=== PATIENT | male | born 1965 | race Caucasian/White ===

== ENCOUNTER → 2023-10-27 07:14 | Outpatient (REF) | payer BC, SELFPAY | LOC: RAD 07:14 | PROVIDERS: ATTENDING PHYSICIAN Neurological Surgery; FAMILY PHYSICIAN Family Medicine; REFERRING PHYSICIAN Physical Medicine & Rehabilitation | DX: M54.12 Radiculopathy, cervical region (principal); M96.0 Pseudarthrosis after fusion or arthrodesis | CPT/HCPCS: 72125 ==

== ENCOUNTER → 2024-10-29 08:10 | Outpatient (REF) | payer BC, SELFPAY | LOC: PAVMRI 08:10 | PROVIDERS: ATTENDING PHYSICIAN Psychiatry & Neurology Neurology; FAMILY PHYSICIAN Family Medicine | DX: M54.12 Radiculopathy, cervical region (principal); G54.0 Brachial plexus disorders | CPT/HCPCS: 71550; 72156; A9575 ==

== ENCOUNTER 2024-12-11 06:20 | Day surgery (SDC) | payer BC, SELFPAY ==
[2024-12-02 13:38] VITALS: BMI 27.2
[2024-12-02 14:14] LABS: Hematocrit 47.6 % (39.0-52.0); Hemoglobin 16.8 g/dL (13.0-18.0); Mean Corp Hgb Conc. 35.3 g/dL (33.0-37.0); Mean Platelet Volume 10.6 fL (7.4-10.4); Platelet Count 160 10^3/uL (130-400)
[2024-12-02 14:40] LABS: ALT (SGPT) 121 U/L (0-50); AST (SGOT) 76 U/L (17-59); Albumin 5.3 g/dl (3.5-5.0); Alkaline Phosphatase 84 U/L (38-126); Blood Urea Nitrogen 14 mg/dl (9-20); Carbon Dioxide 23 mmol/L (22-30); Chloride 104 mmol/L (98-107); Estimated Creatinine Clearance 92 ml/min; Glucose 137 mg/dl (70-99); Potassium 4.4 mmol/L (3.5-5.1); Sodium 142 mmol/L (135-145); Total Protein 7.9 g/dl (6.3-8.2); eGFR > 60.00
[2024-12-11] VITALS (16 sets, daily range): BP systolic 128–163; BP diastolic 75–90; BMI 27.2
[2024-12-11] MEDS: LYRICA 150 MG PO (08:40)
[2024-12-11] MEDS: METHOCARBAMOL 1500 MG PO (08:40)
[2024-12-11] MEDS: CELEBREX 200 MG PO (08:40)
[2024-12-11] MEDS: NORMOSOL-R/PLASMALYTE-A 1000 IV (08:48)
[2024-12-11] MEDS: TYLENOL 1000 MG PO (08:53)
[2024-12-11] MEDS: DILAUDID 0.5 MG IV ×2 (11:20→11:36)
[2024-12-11] MEDS: DILAUDID 0.25 MG IV (12:24)
[2024-12-11] MEDS: ULTRAM 50 MG PO (13:14)
--- NOTE | 2024-12-11 13:16 | SUR.PHASEI ---
medicated for neck and headache pain. pain 10/10 - feels better, position changes are also helpful
== END 2024-12-11 13:51 | disposition home or self-care (01) ==
LOC: SDS 06:20
PROVIDERS: ATTENDING PHYSICIAN Orthopaedic Surgery Orthopaedic Surgery of the Spine; FAMILY PHYSICIAN Family Medicine
DX: M48.02 Spinal stenosis, cervical region (principal)
CPT/HCPCS: 22551; 22845; 22853; C1713; C1776; 36415; 72020; 80053; 85027; 86850; 86900; 86901; 87070; 93005

== ENCOUNTER → 2025-05-05 09:45 | Outpatient (REF) | payer BC, SELFPAY | LOC: RST 09:45 | PROVIDERS: ATTENDING PHYSICIAN Physician Assistant; FAMILY PHYSICIAN Family Medicine | DX: R13.19 Other dysphagia (principal) | CPT/HCPCS: 74230; 92611 ==

== ENCOUNTER 2025-05-11 19:57 | Emergency (ER) | payer BC, SELFPAY ==
[2025-05-11 20:05] VITALS: BP 175/98
[2025-05-11 22:19] VITALS: BP 146/88
[2025-05-11 22:27] VITALS: BMI 29.0
[2025-05-11 23:00] VITALS: BP 122/74
[2025-05-12] VITALS: BP 137/87
--- NOTE | 2025-05-12 | ED.GENMED ---
History of Present Illness
<Shayla Gomez PA-C - Last Filed: 05/12/25 06:15>
General
Chief Complaint: Ear Problem
Source: patient
Exam Limitations: none
Time Seen by Provider: 05/11/25 23:29
Nursing documentation reviewed up to this point in time: agreed with
History of Present Illness
History of Present Illness:
60-year-old male with a past medical history of GERD, hypertension, HONG, who presents to the ER today with concerns of with a sudden onset of hearing loss in the right ear accompanied by eye pain. The symptoms first manifested today. The patient
reports that the eye pain started with a sharp sensation earlier today, followed by hearing loss in the right ear which occurred later the same day. The eye pain has since resolved, but he does notice a scratchy sensation in the right eye. He denies
foreign body in the eye or chemical exposure. Patient then started to experience ringing in the right ear followed by muffled hearing and hearing loss. He denies ear pain. The patient notes no ear pain, drainage, or pain behind the ear. He denies
headache or neck pain. By approximately 3:30 PM, the patient could not hear anything from the right ear. He denies nausea, vomiting, vertigo, dizziness, lightheadedness, double vision, facial droop, facial paresthesias. He denies any abdominal
pain, chest pain and shortness of breath. Went to urgent care and was told he has swelling in his right ear and was advised to go to the ER. Patient denies any history of shingles. He denies any visual loss. He denies any ambulatory dysfunction.
He otherwise feels well.
Past History
<Shayla Gomez PA-C - Last Filed: 05/12/25 06:15>
Past History
ED Past Medical History: Other (Hong)
ED Past Surgical History: Other (Liver biopsy September 2018)
Social History
Tobacco: Non-smoker
Alcohol: None
Drug: None
Personal:
Living: with family
Employment: Employed ([employer])
Family History
Family History: Other (Noncontributory)
Review of Systems
<Shayla Gomez PA-C - Last Filed: 05/12/25 06:15>
Review of Systems
All Other Systems: ROS reviewed and negative except as documented in HPI and ROS
Phy Exam
<Shayla Gomez PA-C - Last Filed: 05/12/25 06:15>
Physical Exam
Physical Exam:
General: Patient is well appearing and in no acute distress; non-toxic
Skin: Warm and dry, no rashes or lesions
Head: Normocephalic, atraumatic
Eyes: Sclera non-icteric. EOMs intact.
Right eye: No scleral injection noted. With fluorescein staining, Small 2 mm horizontal corneal abrasion. No foreign body.
Ears:
R: No erythema or swelling of the external canal, no TM bulging or erythema. Auricle unremarkable.
L: No erythema or swelling of the external canal, no TM bulging or erythema. Auricle unremarkable.
Throat: No pharyngeal erythema, uvula midline
Cardiac: Regular rate and rhythm, no murmurs
Peripheral Vascular: No lower extremity swelling or edema
Pulm: Normal respiratory effort, no wheezes, rales, or rhonchi
Neuro: CN II-XII intact, no focal neurologic deficits.
Psychiatric: Appropriate mood and affect.
Course
<Shayla Gomez PA-C - Last Filed: 05/12/25 06:15>
Orders/Labs/Results
Orders:
Orders
05/11/25 20:09
CT Head W/o Iv Contrast Urgent
Reason For Exam: eye pain, hearing loss. head fullness.
05/11/25 23:47
Purified Water Eye Wash [Dacriose Eye Wash Solution] 120 ml .ROUTE .STK-MED ONE
Vital Signs
Initial and Last Documented VS:
Initial Vital Signs
Temp Pulse Resp BP Pulse Ox
98.2 F 68 16 175/98 99
05/11/25 20:05 05/11/25 20:05 05/11/25 20:05 05/11/25 20:05 05/11/25 20:05
Last Documented Vital Signs
Temp Pulse Resp BP Pulse Ox
98.2 F 64 18 137/87 98
05/11/25 20:05 05/12/25 00:00 05/12/25 00:00 05/12/25 00:00 05/12/25 00:00
<Sasha Domingo DO - Last Filed: 05/12/25 07:01>
Orders/Labs/Results
Orders:
Orders
05/11/25 20:09
CT Head W/o Iv Contrast Urgent
Reason For Exam: eye pain, hearing loss. head fullness.
05/11/25 23:47
Purified Water Eye Wash [Dacriose Eye Wash Solution] 120 ml .ROUTE .STK-MED ONE
Vital Signs
Initial and Last Documented VS:
Initial Vital Signs
Temp Pulse Resp BP Pulse Ox
98.2 F 68 16 175/98 99
05/11/25 20:05 05/11/25 20:05 05/11/25 20:05 05/11/25 20:05 05/11/25 20:05
Last Documented Vital Signs
Temp Pulse Resp BP Pulse Ox
98.2 F 64 18 137/87 98
05/11/25 20:05 05/12/25 00:00 05/12/25 00:00 05/12/25 00:00 05/12/25 00:00
<Shayla Gomez PA-C - Last Filed: 05/12/25 06:15>
MDM/Problems Addressed
Differential Diagnosis Includes:
ddx include sinusitis, corneal abrasion, otitis media, otitis externa, meniere's disease, medication toxicity, otosclerosis, eustachian tube dysfunction
MDM/Problems Addressed:
60-year-old male with a past medical history of GERD, hypertension, HONG, who presents to the ER today with concerns of with a sudden onset of hearing loss in the right ear accompanied by eye pain. The symptoms first manifested today. The pain has
mostly resolved but he notes a scratchy sensation in right eye. He has a small abrasion on exam but no dendritic lesions. He has no facial rash or droop. No accompanied dizziness which is reassuring. Urgent care provider was concerned about ear
swelling however on my exam, I do not see any abnormalities in right ear. Reviewed case with ED attending who also examined the ear. Discussed close follow up with ENT, symptoms could represent very early developing ear infection vs developing
shingles. Discussed symptoms to look out for and strict return precautions. Patient did recieve CT scan of the head prior to my evaluation which was normal. Patient stable for discharge.
Chronic conditions affecting care:
htn, gerd, HONG
<Shayla Gomez PA-C - Last Filed: 05/12/25 06:15>
*Pulse Oximetry
SaO2: 98
Oxygen Mode of Delivery: Room air
Patient hypoxic: no
*Critical Care Note
Total Time (30-74mins, 75-104mins- exclusive of procedures): Not Applicable
Data Reviewed
Review of Other/Old Records Reveals: Records (Reviewed from 12/11/2024, patient seen for surgery for spinal stenosis)
Source: patient and records
ED Attending Note
<Shayla Gomez PA-C - Last Filed: 05/12/25 06:15>
-
Portions of this chart may have been created with voice recognition software.� Occasional wrong word or��sound alike� substitutions may have occurred due to the inherent limitations of voice recognition software.
<Sasha Domingo DO - Last Filed: 05/12/25 07:01>
ED Attending Note
Patient seen and examined by attending physician: Yes
I performed a history and physical exam of patient and discussed management with resident, I reviewed resident's note and agree with documented findings and plan of care.: Yes
ED Attending Note:
60-year-old gentleman with history of hypertension, GERD, cervical disc disease status post anterior cervical Lami November of this year. He has noted some globus sensation since laminectomy and was evaluated by ENT 2 weeks ago, unremarkable exam.
Today he noticed mild irritation, discomfort to his right eye which has since resolved. No injury, no tearing, no vision loss. He then noticed sudden loss of hearing from his right ear since this afternoon. No nasal congestion nor crackling, no
pain. No headache. No dizziness nor lightheadedness.
He presents from urgent care for further evaluation.
Overall well in appearance. Bilateral ear canals are clear, TMs with mild sclerosis bilaterally but no effusion.
CT of the head is unremarkable.
At this point unclear as to cause for hearing loss. Reassuring that there is no other associated symptoms, no symptoms of vertigo, no headache, no weakness nor numbness.
With mild right irritation which has since resolved, must consider prodromal symptoms of herpes zoster. Would not initiate antiviral at this point but discussed with patient to be mindful if right facial/right forehead painful, grouped
papulovesicular rash appears, recommend prompt call to his PCP versus return to the ED.
Otherwise recommend prompt follow-up with ENT for further evaluation of right ear hearing loss.
Discharge Plan
Departure
Patient Disposition: Home (Routine Discharge)
Date of Disposition: 05/12/25
Time of Disposition: 00:37
Patient with high blood pressure during this ER visit?: Yes
Condition: Good
Discharge Problem:
Hearing difficulty of right ear, Corneal abrasion, right
Instructions: Corneal Abrasion (DC), Hearing loss in adults, BLOOD PRESSURE
Prescriptions:
New
ciprofloxacin HCl 0.3 % drops
2 drp ophthalmic (eye) QID 5 Days Qty: 5 0RF
No Action
amlodipine 5 mg Tablet
5 mg PO DAILY
pantoprazole 40 mg Tablet,Delayed Release (Dr/Ec)
40 mg PO DAILY
ibuprofen 200 mg Tablet
400 mg PO Q6H PRN (Reason: pain)
bergamot extract 500 mg Capsule
500 mg PO DAILY
Liver Rescue
2 cap PO DAILY
Referrals:
Forrest Hoff DO [Family Provider, Family Practice]
Activity Restrictions/Additional Instructions:
Your CT of the head was normal.
Please call your ENT doctor to schedule follow up appointment.
Eye drops have been sent to your pharmacy. Please instill 2 drops 4 times daily for 5 days.
Please watch out for numbness and tingling on the face or ear auricle or the development of a rash.
PLEASE RETURN TO THE ER SHOULD YOU DEVELOP EAR PAIN, DRAINAGE FROM THE EAR, DIZZINESS, CHEST PAIN, SHORTNESS OF BREATH, FEVER, OR ANY OTHER SIGNS OR SYMPTOMS WORRISOME TO YOU.
Interventions
Interventions:
*Risk Screen - Suicide Last Done: 05/11/25 20:05
*General Assessment Last Done: 05/11/25 22:23
*Neglect/Abuse Screening Last Done: 05/11/25 20:05
*ED- Fall Risk Assessment Last Done: 05/11/25 22:23
*ED COVID-19 Vaccine History Last Done: 05/11/25 22:23
*Nursing Disposition Last Done: 05/12/25 00:53
Discharge Date and Time
Discharge Date/Time: 05/12/25 00:54
Print Language: MONGOLIAN
== END 2025-05-12 00:54 | disposition home or self-care (01) ==
LOC: EMR 19:57
PROVIDERS: EMERGENCY PHYSICIAN Emergency Medicine; FAMILY PHYSICIAN Family Medicine
DX: H91.91 Unspecified hearing loss, right ear (principal); S05.01XA Injury of conjunctiva and corneal abrasion without foreign body, right eye, initial encounter; X58.XXXA Exposure to other specified factors, initial encounter; I10 Essential (primary) hypertension; K21.9 Gastro-esophageal reflux disease without esophagitis; K75.81 Nonalcoholic steatohepatitis (NASH); M50.30 Other cervical disc degeneration, unspecified cervical region; M48.02 Spinal stenosis, cervical region
CPT/HCPCS: 99284; 70450

== ENCOUNTER 2025-07-28 16:54 | Emergency (ER) | payer BC, SELFPAY ==
[2025-07-28] VITALS (7 sets, daily range): BP systolic 109–151; BP diastolic 73–90; BMI 27.3
[2025-07-28 17:20] LABS: Hematocrit 44.8 % (39.0-52.0); Hemoglobin 15.5 g/dL (13.0-18.0); Mean Corp Hgb Conc. 34.6 g/dL (33.0-37.0); Mean Corpuscular Volume 85.2 fL (80.0-94.0); Nucleated Red Blood Cells % 0 % (-); Platelet Count 184 10^3/uL (130-400); Red Cell Dist. Width 12.8 % (11.5-14.5)
[2025-07-28 17:43] LABS: ALT (SGPT) 78 U/L (0-50); AST (SGOT) 52 U/L (17-59); Albumin 5.0 g/dl (3.5-5.0); Alkaline Phosphatase 85 U/L (38-126); Blood Urea Nitrogen 15 mg/dl (9-20); Calcium 9.4 mg/dl (8.4-10.2); Carbon Dioxide 28 mmol/L (22-30); Chloride 103 mmol/L (98-107); Glucose 101 mg/dl (70-99); Potassium 4.1 mmol/L (3.5-5.1); Sodium 137 mmol/L (135-145); Total Protein 7.5 g/dl (6.3-8.2); eGFR > 60.00
--- NOTE | 2025-07-28 19:40 | ED.GENMED ---
History of Present Illness
General
Chief Complaint: Chest Pain
Source: patient and spouse
Exam Limitations: none
Time Seen by Provider: 07/28/25 19:29
Nursing documentation reviewed up to this point in time: agreed with
History of Present Illness
History of Present Illness:
60-year-old male with a past medical history of hypertension, GERD, VALDIVIA who presents to the emergency department accompanied by his for evaluation of chest pain. Patient reports sudden onset of symptoms at about 4 PM today�he was at the store
with his and says that he reached into his right pocket to pull out his cell phone and had sudden onset of chest pain radiating towards back/right shoulder. He says pain was extremely intense at onset to the point that he went down to his
knee. He was nauseated and felt short of breath. He says pain has been constant although intensity has improved since onset. He does seem to be worse with breathing as well as with certain movements of the arm. Came to the ER for assessment. He
denies any symptoms prior to onset today such as cough, fever, chills, leg pain or swelling. He denies having had similar symptoms in the past. He denies any personal history of heart disease. He says he has not been exercising recently as he has
been having orthopedic issues with his neck and had surgery for his neck earlier this year in November; prior to this he said he exercised regularly on the elliptical for an hour at a time without any limitations.
Past History
Past History
ED Past Medical History: Other (Valdivia)
ED Past Surgical History: Other (Liver biopsy September 2018)
Social History
Tobacco: Non-smoker
Alcohol: None
Drug: None
Personal:
Living: with family
Employment: Employed ([employer])
Family History
Family History: Other (Noncontributory)
Review of Systems
Review of Systems
All Other Systems: ROS reviewed and negative except as documented in HPI and ROS
Constitutional: Denies fever
Respiratory: Reports trouble breathing; Denies cough
Cardiac: Reports chest pain; Denies palpitations
ABD/GI: Reports nausea; Denies abdominal pain or vomiting
: Denies flank pain
Musculoskeletal: Denies neck pain (Chronic but unchanged)
Neurological: Denies headache, weakness or numbness
Phy Exam
Physical Exam
Physical Exam:
General: Awake, alert, oriented x3; no acute distress
Head: Normocephalic, atraumatic
Eyes: Conjunctiva normal, sclerae
Throat: Airway intact, handling secretions
Neck: Trachea midline, supple without meningismus
Lungs: Clear to auscultation bilaterally, no wheezing, rales, rhonchi
Heart: Regular rate and rhythm, no murmurs, gallops, or rubs; no anterior chest wall tenderness
Abd: Soft, non distended, nontender
Back: No midline thoracic or lumbar tenderness but patient does have reproducible tenderness along the medial margin of his right scapula
Neuro: Grossly intact
Skin: no rash in the area of concern
Extremities: No edema in extremities, equal pulses in all extremities
Scores
Heart Failure Risk
Heart Failure Risk Score: Not Applicable
Heart Score for Chest Pain Patients
STEMI patient?: No
History: Slightly or Non-Suspicious
ECG: Normal
Age: >45 - <65 years
Risk Factors: 1 or 2 Risk Factors
Troponin: </= Normal Limit
Heart Score for Chest Pain Patients: 2
Heart Score Risk: 2.5% MACE over next 6 weeks
Withdrawal Assessment of Alcohol
Withdrawal Assessment Completed?: Not applicable
Course
Orders/Labs/Results
Orders:
Orders
07/28/25 16:55
Electrocardiogram (*1) Urgent
Reason for Study: Chest Pain
EKG- Treatment ONCE
07/28/25 17:04
CR Chest - 2 Views Urgent
Comment:
Reason For Exam: chest pain
07/28/25 17:07
Complete Blood Count/With Diff Urgent
Comprehensive Metabolic Panel Urgent
07/28/25 19:39
CT Chest PE Study Urgent
Comment:
Reason For Exam: sudden onset right sided chest pain
07/28/25 19:47
Troponin I Urgent
07/28/25 21:30
Ketorolac [Toradol] 15 mg IV NOW STA
07/28/25 22:55
Troponin I Urgent
Abnormal Lab Results
07/28/25
17:07
Glucose 101 H mg/dl
(70-99)
ALT 78 H U/L
(0-50)
07/28/25 17:07
07/28/25 17:07
Vital Signs
Initial and Last Documented VS:
Initial Vital Signs
Temp Pulse Resp BP Pulse Ox
36.4 C 66 16 151/90 99
07/28/25 17:00 07/28/25 17:00 07/28/25 17:00 07/28/25 17:00 07/28/25 17:00
Last Documented Vital Signs
Temp Pulse Resp BP Pulse Ox
36.4 C 72 16 129/83 98
07/28/25 17:00 07/28/25 20:00 07/28/25 20:00 07/28/25 20:00 07/28/25 20:02
MDM/Problems Addressed
Differential Diagnosis Includes:
ACS, PE, aortic dissection, pneumothorax, costochondritis, cervical/thoracic radiculopathy
MDM/Problems Addressed:
60-year-old male presents for evaluation of acute onset chest pain associated with shortness of breath and nausea started suddenly while out shopping after he reached for his phone in his pocket. Symptoms have improved but persisted since onset.
He is hypertensive but has otherwise normal vitals. Physical exam is as noted. He had an EKG in triage which shows sinus rhythm no acute ischemia. Initial labs in triage including a CBC and a CMP showed no clinically significant abnormalities.
His initial troponin is pending�will trend this for completeness to rule out ACS although low suspicion clinically. He had a chest x-ray in triage reviewed by me shows no pneumothorax or other acute abnormalities. With abrupt onset of symptoms,
sharp pain worse with inspiration PE consideration although no tachycardia or hypoxia; similarly abrupt onset of hypertension raises possibility of dissection although with improvement in symptoms and clinical appearance I also have low suspicion
for this diagnosis�will check CTA to rule these diagnoses out. Will monitor patient closely on telemetry reassess after the above.
Initial troponin undetectable�will need to repeat CT chest negative for PE or dissection. Incidental note made on CT of coronary calcifications. Continue to monitor and reassess after repeat troponin. Clinical exam is stable.
Repeat troponin undetectable. Patient feeling better after Toradol. Vital signs. Low suspicion that these are symptoms with 2 negative troponins after constant symptoms for risk with reproducible tenderness on exam. Nevertheless with his
coronary calcifications noted incidentally on CT refer to cardiology for outpatient follow-up. At this point patient is stable for discharge can follow-up with an outpatient basis. He feels comfortable this plan. All questions answered.
Chronic conditions affecting care:
Hypertension
Acute Exacerbation and/or Progression of Chronic Illness: HTN
*Radiology
Radiology exam reviewed: preliminary read by ED provider and radiology read reviewed
*Pulse Oximetry
SaO2: 99
Oxygen Mode of Delivery: Room air
Patient hypoxic: no (99%)
*EKG
Interpreted by ED Provider?: Yes
Heart Rate: 67
Rate: normal
Rhythm: sinus
[place]: normal axis
Interval: normal interval
QRS Pattern: normal QRS
Ischemia: no ischemia
*Critical Care Note
Total Time (30-74mins, 75-104mins- exclusive of procedures): Not Applicable
Data Reviewed
Source: patient, records and spouse
ED Attending Note
-
Portions of this chart may have been created with voice recognition software.� Occasional wrong word or��sound alike� substitutions may have occurred due to the inherent limitations of voice recognition software.
Discharge Plan
Departure
Patient Disposition: Home (Routine Discharge)
Date of Disposition: 07/29/25
Time of Disposition: 00:11
Patient with high blood pressure during this ER visit?: Yes
Discharge Problem:
Chest pain
Instructions: Chest Pain DCA Follow Up
Prescriptions:
No Action
amlodipine 5 mg Tablet
5 mg PO DAILY
pantoprazole 40 mg Tablet,Delayed Release (Dr/Ec)
40 mg PO DAILY
ibuprofen 200 mg Tablet
400 mg PO Q6H PRN (Reason: pain)
bergamot extract 500 mg Capsule
500 mg PO DAILY
Liver Rescue
2 cap PO DAILY
ciprofloxacin HCl 0.3 % drops
2 drp ophthalmic (eye) QID 5 Days Qty: 5 0RF
Referrals:
Mohan Sanders, [Active, Cardiology] - Call in 1-3 days for appt
Activity Restrictions/Additional Instructions:
Thank you for visiting the Emergency Department at [facility].
1. Please schedule a follow up appointment as directed. Call first thing tomorrow morning to make an appointment.
2. If indicated, please take your medications as instructed and indicated on discharge paperwork.
3. If any of your symptoms do not improve, or persist, or become more severe within 6-12 hours, please return to the emergency department for further care.
4. Please return to the emergency department if you develop a headache, neck pain/stiffness, fever greater than 100.4F, chest pain, shortness of breath, persistent nausea, vomiting, slurred speech, difficulty walking, numbness/tingling, weakness,
signs of infection or any other symptoms that are worrisome to you.
Please call [phone] if you have any questions.
Interventions
Interventions:
*Risk Screen - Suicide Last Done: 07/28/25 16:57
*General Assessment Last Done: 07/28/25 19:54
*Neglect/Abuse Screening Last Done: 07/28/25 16:57
*ED COVID-19 Vaccine History Last Done: 07/28/25 19:54
*ED Influenza Vaccine History Last Done: 07/28/25 19:54
[facility] Fall Risk Assessment Tool Last Done: 07/28/25 19:54
ED- Cardiac Assessment Last Done: 07/28/25 19:54
Discharge Date and Time
Print Language: BRUNEIAN
[2025-07-28 20:25] LABS: Troponin I < 0.012 ng/ml
[2025-07-28] MEDS: TORADOL 15 MG IV (21:52)
[2025-07-29] VITALS: BP 99/62
[2025-07-29 00:07] LABS: Troponin I < 0.012 ng/ml
== END 2025-07-29 00:40 | disposition home or self-care (01) ==
LOC: EMR 16:54
PROVIDERS: Emergency Medicine; EMERGENCY PHYSICIAN Emergency Medicine
DX: R07.9 Chest pain, unspecified (principal); I25.10 Atherosclerotic heart disease of native coronary artery without angina pectoris; I10 Essential (primary) hypertension; K21.9 Gastro-esophageal reflux disease without esophagitis; K75.81 Nonalcoholic steatohepatitis (NASH)
CPT/HCPCS: 99284; 96374; 71046; 71275; 80053; 84484; 85025; 93005; Q9967